=== PATIENT | female | born 1955 | race Caucasian/White ===

== ENCOUNTER 2016-09-19 17:28 | Emergency (ER) | payer OTHER ==
[2016-09-19 17:38] VITALS: RESP 16; TEMP 98.4
--- NOTE | 2016-09-19 17:54 | EDPHY ---
H & P Smoking Status: Never smoked Time Seen by Provider: 09/19/16 17:49 HPI/ROS: CHIEF COMPLAINT: Right 3rd toe injury HISTORY OF PRESENT ILLNESS: 61-year-old female via private vehicle complaining of acute right 3rd toe injury when she accidentally kicked an object. She is able to bear weight albeit with pain. Positive ecchymosis. Reproducible pain with palpation weight-bearing. Incident occurred earlier today. PRIMARY CARE PROVIDER: REVIEW OF SYSTEMS: A ten point review of systems was performed and is negative with the exception of the items mentioned in the HPI PHYSICAL EXAM (Prior to examination, patient consented to physical exam, hands were washed and my usual and customary physical exam procedures followed) 1) GENERAL: Well-developed, well-nourished, alert and oriented. Appears to be in no acute distress. 2) HEAD: Normocephalic 3) HEENT: Pupils equal, round, reactive to light bilaterally. 4) LUNGS: Breathing comfortably. 5) MUSCULOSKELETAL: Right 3rd toe distal phalanx ecchymosis with intact skin noted. Tender to palpation middle and distal phalanx. Remainder foot nontender 6) SKIN: ecchymosis 7) VASCULAR: DP,PT pulses and cap refill present and brisk DIFFERENTIAL DIAGNOSIS: in no particular order including but not limited to fracture, sprain, compartment syndrome Right foot, 3 views. History: PAIN Comparison examination:none available Findings: On the lateral radiograph, there is a small chip avulsion arising from the middle phalanx of the second toe distally at the DIP joint. This fracture fragment appears well-corticated and remote in age. An obliquely oriented nondisplaced fracture, acute in age, involves the distal phalanx of the third toe medially at the DIP joint. This fracture is best visualized on the AP exam. Joint spaces are maintained. Normal alignment. Impression: 1. Acute nondisplaced fracture, distal phalanx right third toe at the DIP joint. Dictated By: Red Tolentino MD Images reviewed by myself Procedure: Splint A eris tape splint and postop shoe splint were applied by ER elevator service technician. After application of the splint I returned and re-examined the patient. The splint was adequately immobilizing the joint and distal to the splint the patient's circulation and sensation were intact. Patient shows no signs of compartment syndrome. Was given orthopedic precautions. (Jose Roberto Guerra) Constitutional: Initial Vital Signs Temperature (C) 36.9 C 09/19/16 17:36 Heart Rate 71 09/19/16 17:36 Respiratory Rate 16 09/19/16 17:36 Blood Pressure 184/97 H 09/19/16 17:36 O2 Sat (%) 94 09/19/16 17:36 O2 Delivery Mode Room Air Allergies/Adverse Reactions: cat dander Allergy (Verified 09/19/16 17:35) hay Allergy (Uncoded 09/19/16 17:35) Home Medications: Medication Instructions Recorded [place] Thyroid 09/19/16 Estrogel 09/19/16 Losartan Potassium 09/19/16 Progesterone 09/19/16 Testosterone 09/19/16 MDM/Departure - MDM ED Course/Re-evaluation: I did not see this patient while she was in the emergency department. However her care was discussed with the PA while the patient was in the department. I agree with treatment plan and management (Logan Cornell) - Depart Disposition: Home, Routine, Self-Care Clinical Impression: Toe fracture, left Qualifiers: Encounter type: initial encounter Toe: lesser toe Fracture type: closed Phalanx : middle Fracture alignment: nondisplaced Qualified Code(s): S92.525A - Nondisplaced fracture of medial phalanx of left lesser toe(s), initial encounter for closed fracture Instructions: Toe Fracture (ED) Additional Instructions: Return to the ER immediately if you experience discoloration, have worsening pain, numbness, tingling, or any other symptoms that concern you. If you received x-rays in the emergency department today, be advised, that ligamentous , tendon, muscular, and other non-bony injury cannot be fully ruled out. Try to keep your affected extremity elevated above the level of your chest, and keep cold packs on the affected area, for the next 48 hours. Referrals: Gia King [Doctor of Podiatric Medicine] - 2-3 days, call for appt.
[2016-09-19 18:55] VITALS: BP 137/94; PULSE 59; O2SAT 98
== END 2016-09-19 18:54 | disposition home or self-care (01) ==
DX: S92.521A Displaced fracture of middle phalanx of right lesser toe(s), initial encounter for closed fracture (principal); W22.8XXA Striking against or struck by other objects, initial encounter
CPT/HCPCS: L3260

== ENCOUNTER → 2017-06-03 | Outpatient (CLI) | payer OTHER | LOC: FIMAGING 13:06 | PROVIDERS: ATTEND Family Medicine | DX: Z12.31 Encounter for screening mammogram for malignant neoplasm of breast (principal); Z80.3 Family history of malignant neoplasm of breast | CPT/HCPCS: G0202 ==

== ENCOUNTER → 2019-01-13 | Outpatient (CLI) | payer MEDICAID | LOC: FIMAGING 15:27 ==